=== PATIENT | female | born 1995 | race American Indian/Alaskan Native ===

== ENCOUNTER 2021-05-04 15:19 | Emergency (ER) | payer OTHER ==
[2021-05-04] MEDS ORDERED: ONDANSETRON 4 MG/2 ML INJ IV ONE (16:39)
[2021-05-04] MEDS ORDERED: KETOROLAC 30 MG/1 ML INJ IV ONE (16:39)
[2021-05-04] MEDS ORDERED: METOCLOPRAMIDE 10 MG/2 ML INJ IV ONE (16:39)
[2021-05-04 17:08] VITALS: BP 125/91
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
== END 2021-05-04 18:04 | disposition home or self-care (01) ==
LOC: ED 15:19
DX: R51.9 Headache, unspecified (principal); H53.149 Visual discomfort, unspecified; R42 Dizziness and giddiness
CPT/HCPCS: 96374; 96375; 99282; J1885; J2405; J2765

== ENCOUNTER 2022-01-20 17:47 | Emergency (ER) | payer OTHER | END 2022-01-20 18:00 | disposition left against medical advice (07) | LOC: ED 17:47 | DX: M25.531 Pain in right wrist (principal); Z53.21 Procedure and treatment not carried out due to patient leaving prior to being seen by health care provider ==